=== PATIENT | male | born 1990 | race Caucasian/White ===

== ENCOUNTER 2022-12-05 11:45 | Day surgery (SDC) | payer BC ==
[2022-12-02 18:16] VITALS: BMI 44.0
[2022-12-05 11:59] VITALS: TEMP 98.1
[2022-12-05 12:43] VITALS: RESP 18
[2022-12-05 13:04] VITALS: BP 118/80; PULSE 66
== END 2022-12-05 13:05 | disposition home or self-care (01) ==
LOC: FASU-ENDO 11:45
PROVIDERS: ATTEND Internal Medicine Gastroenterology
PROC: 0DJ08ZZ Inspection of Upper Intestinal Tract, Via Natural or Artificial Opening Endoscopic (ICD-10-PCS; principal; 2022-12-05 12:18)
DX: K21.9 Gastro-esophageal reflux disease without esophagitis (principal); Z53.9 Procedure and treatment not carried out, unspecified reason

== ENCOUNTER 2023-01-02 12:10 | Day surgery (SDC) | payer BC ==
[2022-12-29 15:45] VITALS: BMI 44.0
[2023-01-02 12:28] VITALS: RESP 18; TEMP 97.6
[2023-01-02 13:56] VITALS: BP 110/77; PULSE 77
== END 2023-01-02 13:30 | disposition home or self-care (01) ==
LOC: FASU-ENDO 12:10
PROVIDERS: ATTEND Internal Medicine Gastroenterology
PROC: 0DB78ZX Excision of Stomach, Pylorus, Via Natural or Artificial Opening Endoscopic, Diagnostic (ICD-10-PCS; 2023-01-02)
PROC: 0DB48ZX Excision of Esophagogastric Junction, Via Natural or Artificial Opening Endoscopic, Diagnostic (ICD-10-PCS; 2023-01-02)
PROC: 0DB98ZX Excision of Duodenum, Via Natural or Artificial Opening Endoscopic, Diagnostic (ICD-10-PCS; principal; 2023-01-02 12:49)
DX: K29.50 Unspecified chronic gastritis without bleeding (principal); K20.90 Esophagitis, unspecified without bleeding; R10.13 Epigastric pain
CPT/HCPCS: 88305-TC; 88342-TC